=== PATIENT | female | born 1935 | race Two or more races ===

== ENCOUNTER 2016-12-16 06:44 | Emergency (ER) | payer OTHER ==
[2016-12-16 07:25] VITALS: TEMP 97.9; BMI 21.9
--- NOTE | 2016-12-16 07:33 | PDOC ---
History of Present Illness <Oral Barillas - Last Filed: 12/16/16 08:39> - General History Source: Patient, Family Exam Limitations: No Limitations - History of Present Illness Initial Comments: 12/16/16 08:28 The patient is an 81 year old female, accompanied by granddaughter, with a past medical history of UTIs, acid reflux, anxiety, depression, and vertigo, who presents to the emergency department for further evaluation of dysuria and abdominal pain for 2 weeks. As per granddaughter the patient has had associated blood in urine and notes symptoms are similar to her previous UTI episodes. The patient describes her abdominal pain as burning in sensation. Granddaughter states that the patient has a son who is a doctor in the [place] and he prescribed her a course of Fosfomycin (taken BID) which the patient finished yesterday. <Kam Carver - Last Filed: 12/16/16 11:19> - General Chief Complaint: Hematuria Stated Complaint: URINARY PROBLEM,PAIN Time Seen by Provider: 12/16/16 07:21 Past History - Past Medical History GI Disorders: Yes (acid reflux) Psychiatric Problems: Yes (anxiety,depression) - Immunization History Immunization Up to Date: Yes - Psycho/Social/Smoking Cessation Hx Anxiety: No Suicidal Ideation: No Smoking Status: No Smoking History: Never smoked Number of Cigarettes Smoked Daily: 0 Hx Alcohol Use: No Drug/Substance Use Hx: No Substance Use Type: None <Oral Barillas - Last Filed: 12/16/16 08:39> <Kam Carver - Last Filed: 12/16/16 11:19> - Past Medical History Allergies/Adverse Reactions: Allergies Allergy/AdvReac Type Severity Reaction Status Date / Time No Known Drug Allergies Allergy Verified 12/16/16 07:46 eggs AdvReac Uncoded 12/16/16 07:46 Home Medications: Ambulatory Orders Benzonatate [Tessalon Pearls -] 100 mg PO TID PRN #21 capsule 07/05/16 Guaifenesin [Mucinex -] 600 mg PO BID #14 tablet.er 07/05/16 Lorazepam 2.5 mg PO DAILY 07/05/16 Meclizine HCl 25 mg PO DAILY 07/05/16 Nitrofurantoin Macrocrystal [Nitrofurantoin] 100 mg PO BID #9 capsule 12/16/16 Phenazopyridine HCl [Pyridium] 100 mg PO BID #3 tablet 12/16/16 Review of Systems - Review of Systems Able to Perform ROS?: Yes Comments:: 12/16/16 08:28 CONSTITUTIONAL: No reported: Fever, Chills, Diaphoresis, Generalized Weakness, Malaise, Loss of Appetite HEENT: No reported: Rhinorrhea, Nasal Congestion, Throat Pain, Throat Swelling, Difficulty Swallowing, Mouth Swelling, Ear Pain, Eye Pain, Visual Changes CARDIOVASCULAR: No reported: Chest Pain, Syncope, Palpitations, Irregular Heart Rate, Lightheadedness, Peripheral Edema RESPIRATORY: No reported: Cough, Shortness of Breath, SOB with Exertion, Orthopnea, Wheezing , Stridor, Hemoptysis GASTROINTESTINAL: Reported: Abdominal pain No reported: Abdominal pain, Abdominal Distension, Nausea, Vomiting, Diarrhea, Constipation, Melena, Hematochezia GENITOURINARY: Reported: Dysuria. No reported: Frequency, Urgency, Hesitancy, Flank Pain, Genital Pain MUSCULOSKELETAL: No reported: Myalgia, Arthralgia, Joint Swelling, Back pain, Neck Pain SKIN: No reported: Rash, Itching, Pallor HEMATOLOGIC/IMMUNOLOGIC: No reported: Easy Bleeding, Easy Bruising, Lymphadenopathy, Frequent infections ENDOCRINE: No reported: Unexplained Weight Gain, Unexplained Weight Loss, Heat Intolerance , Cold Intolerance NEUROLOGIC: No reported: Headache, Focal Weakness, Paresthesias, Vertigo, Lightheadedness, Unsteady Gait, Seizure, Mental Status Changes, Incontinence PSYCHIATRIC: No reported: Anxiety, Depression <Kam Carver - Last Filed: 12/16/16 11:19> *Physical Exam - Vital Signs Last Vital Signs Temp Pulse Resp BP Pulse Ox 97.9 F 72 18 114/68 98 12/16/16 07:15 12/16/16 07:15 12/16/16 07:15 12/16/16 07:15 12/16/16 07:15 <Oral Barillas - Last Filed: 12/16/16 08:39> - Vital Signs Last Vital Signs Temp Pulse Resp BP Pulse Ox 97.9 F 72 18 114/68 98 12/16/16 07:15 12/16/16 07:15 12/16/16 07:15 12/16/16 07:15 12/16/16 07:15 - Physical Exam Comments: 12/16/16 08:28 GENERAL: The patient is awake, alert, and fully oriented, Nontoxic - in no acute distress. HEAD: Normocephalic, atraumatic. EYES: extraocular movements intact, sclera anicteric, conjunctiva clear. ENT: Normal voice, Moist mucous membranes. NECK: Normal range of motion, No JVD LUNGS: Breath sounds equal, clear to auscultation bilaterally. No wheezes, no rhonchi, no rales. HEART: Regular rate and rhythm, normal S1 and S2 without murmur, rub or gallop. ABDOMEN: (+) Mild surapubic tenderness. soft, normoactive bowel sounds. No guarding, no rebound. No masses. No CVA tenderness EXTREMITIES: Normal range of motion, no edema. No clubbing or cyanosis. No cords , erythema, or tenderness. NEUROLOGICAL: No facial asymmetry, Normal speech, normal gait. PSYCH: Normal mood, normal affect. SKIN: Warm, Dry, normal turgor. <Kam Carver - Last Filed: 12/16/16 11:19> Medical Decision Making - Medical Decision Making 12/16/16 07:46 81y F hx of anxiety presents with suprapubic pain and dysuria for several weeks , had taken a course of fosfomycin with improvement but symptoms returned. no systemic complciants in cluding fever/chills, n/v, bcak pain. suspect UTI will ck ua and urine culture 12/16/16 08:36 UA c/w UTI will treat pt with macrobid and pyridum will hvae pt fu with PMD return precautions were discussed I discussed the physical exam findings, ancillary test results and final diagnoses with the patient. I answered all of the patient's questions. The patient was satisfied with the care received and felt comfortable with the discharge plan and treatment plan. The patient will call their primary care physician within 24 hours to arrange follow-up and will return to the Emergency Department with any new, persistent or worsening symptoms. <Oral Barillas - Last Filed: 12/16/16 08:39> *DC/Admit/Observation/Transfer - Discharge Dispostion Admit: No <Oral Barillas - Last Filed: 12/16/16 08:39> - Attestations Scribe Attestion: 12/16/16 08:29 Documentation prepared by Kam Carver, acting as medical typist for Oral Barillas MD. <Kam Carver - Last Filed: 12/16/16 11:19> Diagnosis at time of Disposition: Urinary tract bacterial infections - Discharge Dispostion Disposition: HOME Condition at time of disposition: Improved - Prescriptions Prescriptions: Nitrofurantoin Macrocrystal [Nitrofurantoin] 100 mg PO BID #9 capsule Phenazopyridine HCl [Pyridium] 100 mg PO BID #3 tablet - Referrals Referrals: [facility] [Provider Group] - Patient Instructions Printed Discharge Instructions: DI for Urinary Tract Infection (UTI) Additional Instructions: Vuelva al departamento de emergencia inmediatamente con CUALQUIER nuevo, persistente o empeorando sntomas incluyendo fiebres, escalofros, dolor de espalda, nuseas, vmitos o cualquier otra preocupacin. Debe llamar y seguir con jaramillo mdico maana para anu evaluacin ms detallada de krystal sntomas. Los resultados fueron discutidos con usted. Por favor, asegrese de que jaramillo mdico revise los resultados de jaramillo evaluacin de emergencia. Return to the emergency department immediately with ANY new, persistent or worsening symptoms including any fevers, chills, back pain, nausea, vomiting or any other concerns. You MUST call and follow up with your doctor tomorrow for further evaluation of your symptoms. Results were discussed with you. Please make sure your doctor reviews the results of your emergency evaluation. Print Language: BENINESE
[2016-12-16 08:21] LABS: URINE APPEARANCE CLOUDY; URINE BILIRUBIN NEGATIVE (NEGATIVE); URINE COLOR YELLOW; URINE GLUCOSE (UA) NEGATIVE (NEGATIVE); URINE KETONE NEGATIVE (NEGATIVE); URINE NITRITE NEGATIVE (NEGATIVE); URINE UROBILINOGEN NEGATIVE E.U./dl (0.2-1.0)
[2016-12-16 08:28] LABS: URINE BLOOD 2+ (NEGATIVE); URINE LEUK ESTERASE 3+ (NEGATIVE); URINE PROTEIN 2+ (NEGATIVE)
[2016-12-16 08:29] LABS: URINE BACTERIA FEW /hpf (NONE SEEN); URINE RBC 66 /hpf (0-3); URINE WBC 895 /hpf (3-5); YEAST MODERATE
[2016-12-16] MEDS ORDERED: PHENAZOPYRIDINE HCL 100 MG TABLET (FP) PO ONE (08:34)
[2016-12-16] MEDS ORDERED: NITROFURANTOIN MACROCRYSTAL 50 MG CAPSULE (FP) PO SCH (08:45)
[2016-12-16] MEDS ORDERED: NITROFURANTOIN MACROCRYSTAL 50 MG CAPSULE (FP) ONE (08:50)
[2016-12-16] MEDS ORDERED: PHENAZOPYRIDINE HCL 100 MG TABLET (FP) ONE (08:50)
[2016-12-16 09:00] VITALS: BP 120/68; PULSE 70
== END 2016-12-16 09:00 | disposition home or self-care (01) ==
LOC: JER 06:44
DX: N39.0 Urinary tract infection, site not specified (principal); B96.20 Unspecified Escherichia coli [E. coli] as the cause of diseases classified elsewhere; F41.8 Other specified anxiety disorders; K21.9 Gastro-esophageal reflux disease without esophagitis
CPT/HCPCS: 81003; 81015; 87086; 87186; 99282-25

== ENCOUNTER 2020-09-30 14:37 | Emergency (ER) | payer OTHER ==
[2020-09-30 14:44] VITALS: BMI 24.9
[2020-09-30] MEDS ORDERED: KETOROLAC TROMETHAMINE 30 MG/1 ML VIAL IM ONE (15:30)
[2020-09-30] MEDS ORDERED: ACETAMINOPHEN 500 MG TABLET (FP) PO ONE (15:31)
[2020-09-30] MEDS ORDERED: KETOROLAC TROMETHAMINE 30 MG/1 ML VIAL ONE (15:41)
[2020-09-30] MEDS ORDERED: ACETAMINOPHEN 325 MG TABLET (FP) ONE (15:41)
[2020-09-30] MEDS ORDERED: morphine CARPU-JECT 4 MG/1 ML DISP.SYRIN IVPUSH ONE (17:20)
[2020-09-30] MEDS ORDERED: MORPHINE SULFATE 2 MG/ML VIAL ONE (17:44)
[2020-09-30 17:57] LABS: BASO % 0.3 % (0-2.0); EOS % 1.2 % (0-4.5); HEMATOCRIT 35.6 % (32.4-45.2); HEMOGLOBIN 11.8 GM/dL (10.7-15.3); LYMPH % 26.7 % (8-40); MCH 32.2 pg (25.7-33.7); MCHC 33.2 g/dl (32.0-36.0); MEAN PLT VOLUME 9.7 fl (7.5-11.1); NEUT % 66.8 % (42.8-82.8); PLATELET COUNT 188 K/MM3 (134-434); RBC 3.67 M/mm3 (3.60-5.2); RDW 18.4 % (11.6-15.6); WHITE BLOOD COUNT 9.2 K/mm3 (4.0-10.0)
[2020-09-30 18:16] LABS: POTASSIUM 4.8 mmol/L (3.5-5.1)
[2020-09-30 18:17] LABS: ALBUMIN 3.3 g/dl (3.4-5.0); BLOOD UREA NITROGEN 27.8 mg/dL (7-18); CALCIUM 8.8 mg/dL (8.5-10.1)
[2020-09-30 18:20] LABS: CREATININE 0.9 mg/dL (0.55-1.3)
[2020-09-30 18:22] LABS: BILIRUBIN,TOTAL 0.2 mg/dL (0.2-1); TOT PROT 6.3 g/dl (6.4-8.2)
[2020-09-30 18:37] LABS: EPI CELLS 1 /uL (0-25.1); HYALINE CASTS 2 /uL (0-3.1); URINE APPEARANCE CLOUDY; URINE BACTERIA >9,000 /uL (0-1359); URINE BILIRUBIN NEGATIVE (NEGATIVE); URINE COLOR YELLOW; URINE GLUCOSE (UA) NEGATIVE (NEGATIVE); URINE KETONE NEGATIVE (NEGATIVE); URINE LEUK ESTERASE 2+ (NEGATIVE); URINE NITRITE NEGATIVE (NEGATIVE); URINE PROTEIN 2+ (NEGATIVE); URINE RBC 13 /uL (0-23.9); URINE UROBILINOGEN 0.2 mg/dL (0.2-1.0); URINE WBC 164 /uL (0-25.8)
[2020-09-30] MEDS ORDERED: CEPHALEXIN MONOHYDRATE 500 MG CAPSULE (UD) PO ONE (18:49)
[2020-09-30] MEDS ORDERED: SULFAMETHOXAZOLE/TRIMETHOPRIM 800MG/160MG D.S. TABLET PO ONE (18:51)
[2020-09-30] MEDS ORDERED: SULFAMETHOXAZOLE/TRIMETHOPRIM 800MG/160MG D.S. TABLET ONE (18:53)
[2020-09-30 19:17] VITALS: BP 145/79; PULSE 85; TEMP 97.9
== END 2020-09-30 19:17 | disposition home or self-care (01) ==
LOC: JER 14:37
PROC: 3E0233Z Introduction of Anti-inflammatory into Muscle, Percutaneous Approach (ICD-10-PCS; principal; 2020-09-30)
PROC: 3E033NZ Introduction of Analgesics, Hypnotics, Sedatives into Peripheral Vein, Percutaneous Approach (ICD-10-PCS; 2020-09-30)
DX: R10.9 Unspecified abdominal pain (principal); N30.00 Acute cystitis without hematuria
CPT/HCPCS: 36415; 72070-TC-FY; 72100-TC-FY; 74176-TC; 80053; 81003; 85025; 87086; 87186; 96372; 96375; 99285-25

== ENCOUNTER 2021-04-01 09:18 | Inpatient (IN) | payer OTHER ==
[2021-04-01 10:21] LABS: EPI CELLS 7 /uL (0-25.1); HYALINE CASTS 1 /uL (0-3.1); URINE APPEARANCE CLOUDY; URINE BACTERIA >9,000 /uL (0-1359); URINE BILIRUBIN NEGATIVE (NEGATIVE); URINE COLOR YELLOW; URINE GLUCOSE (UA) NEGATIVE (NEGATIVE); URINE KETONE TRACE (NEGATIVE); URINE LEUK ESTERASE 3+ (NEGATIVE); URINE NITRITE POSITIVE (NEGATIVE); URINE PROTEIN TRACE (NEGATIVE); URINE RBC 56 /uL (0-23.9); URINE UROBILINOGEN 0.2 mg/dL (0.2-1.0); URINE WBC 1390 /uL (0-25.8)
[2021-04-01] MEDS ORDERED: ACETAMINOPHEN 1000 MG/100 ML VIAL (NON FORMULARY) IVPB ONE (11:10)
[2021-04-01] MEDS ORDERED: ACETAMINOPHEN INJECTION 100 ML IVPB ONE (11:11)
[2021-04-01 11:14] LABS: BASO % 0.6 % (0-2.0); EOS % 0.9 % (0-4.5); HEMATOCRIT 32.5 % (32.4-45.2); HEMOGLOBIN 11.2 GM/dL (10.7-15.3); LYMPH % 16.5 % (8-40); MCH 33.1 pg (25.7-33.7); MCHC 34.3 g/dl (32.0-36.0); MEAN CELL VOLUME 96.5 fl (80-96); MEAN PLT VOLUME 9.7 fl (7.5-11.1); PLATELET COUNT 114 10^3/uL (134-434); RBC 3.37 M/mm3 (3.60-5.2); RDW 19.1 % (11.6-15.6); WHITE BLOOD COUNT 9.6 K/mm3 (4.0-10.0)
[2021-04-01] MEDS ORDERED: CEFTRIAXONE 1,000 MG in DEXTROSE 5%-WATER - 50 ML IVPB ONE (11:41)
[2021-04-01 11:44] LABS: BLOOD UREA NITROGEN 27.8 mg/dL (7-18); CALCIUM 8.2 mg/dL (8.5-10.1)
[2021-04-01] MEDS ORDERED: CEFTRIAXONE 1 GM/50 ML BAG ONE (11:44)
[2021-04-01 11:48] LABS: BILIRUBIN,TOTAL 0.3 mg/dL (0.2-1)
[2021-04-01 11:49] LABS: TOT PROT 5.8 g/dl (6.4-8.2)
[2021-04-01] MEDS ORDERED: morphine CARPU-JECT 2 MG/1 ML DISP.SYRIN IVPUSH ONE (14:22)
[2021-04-01] MEDS ORDERED: MORPHINE SULFATE 2 MG/ML VIAL ONE (14:27)
[2021-04-01] MEDS ORDERED: LIDOCAINE 5% TOPICAL PATCH TP ONE (15:35)
[2021-04-01] MEDS ORDERED: KETOROLAC TROMETHAMINE 15 MG/ML VIAL IVPUSH ONE (15:37)
[2021-04-01] MEDS ORDERED: KETOROLAC TROMETHAMINE 15 MG/ML VIAL ONE (15:47)
[2021-04-01] MEDS ORDERED: LIDOCAINE 5% TOPICAL PATCH ONE (15:47)
[2021-04-01] MEDS ORDERED: ACETAMINOPHEN 500 MG TABLET (FP) ONE (17:02)
[2021-04-01] MEDS: SODIUM CHLORIDE 1,000 ML IV SCH (17:06)
[2021-04-01] MEDS: ACETAMINOPHEN 500 MG TABLET (FP) PO SCH ×2 (17:07→23:08)
[2021-04-01 21:11] VITALS: BMI 21.4
[2021-04-01] MEDS ORDERED: LIDOCAINE PATCH REMOVAL MC ONE (22:00)
[2021-04-02] MEDS: ACETAMINOPHEN 500 MG TABLET (FP) PO SCH (05:44)
[2021-04-02] MEDS: SODIUM CHLORIDE 1,000 ML IV SCH ×2 (05:45→17:28)
[2021-04-02 08:26] LABS: BLOOD UREA NITROGEN 24.4 mg/dL (7-18)
[2021-04-02 08:29] LABS: CREATININE 0.9 mg/dL (0.55-1.3)
[2021-04-02] MEDS ORDERED: cefTRIAXone SODIUM 1 GM VIAL ONE (08:29)
[2021-04-02] MEDS ORDERED: DEXTROSE 5%-WATER - 50 ML IVPB ONE (08:30)
[2021-04-02 08:34] LABS: BASO % 0.3 % (0-2.0); EOS % 2.9 % (0-4.5); HEMOGLOBIN 12.8 GM/dL (10.7-15.3); LYMPH % 35.9 % (8-40); MCH 32.8 pg (25.7-33.7); MCHC 32.8 g/dl (32.0-36.0); MEAN CELL VOLUME 99.9 fl (80-96); MEAN PLT VOLUME 8.5 fl (7.5-11.1); MONO % 4.6 % (3.8-10.2); NEUT % 56.3 % (42.8-82.8); PLATELET COUNT 178 10^3/uL (134-434); RDW 19.8 % (11.6-15.6); WHITE BLOOD COUNT 6.9 K/mm3 (4.0-10.0)
[2021-04-02] MEDS ORDERED: ACETAMINOPHEN 1000 MG/100 ML VIAL (NON FORMULARY) IVPB ONE (08:45)
[2021-04-02] MEDS: LORazepam 1 MG TABLET PO PRN (09:11)
[2021-04-02] MEDS: LIDOCAINE 5% TOPICAL PATCH TP SCH (09:11)
[2021-04-02] MEDS: CEFTRIAXONE 1 GM in DEXTROSE 5%-WATER - 50 ML IVPB SCH (09:12)
[2021-04-02] MEDS: ACETAMINOPHEN 500 MG TABLET (FP) PO PRN (18:11)
[2021-04-02] MEDS: KETOROLAC TROMETHAMINE 15 MG/ML VIAL IVPUSH PRN (21:12)
[2021-04-02] MEDS: LIDOCAINE PATCH REMOVAL MC SCH (22:14)
[2021-04-03] MEDS: SODIUM CHLORIDE 1,000 ML IV SCH ×2 (04:05→18:40)
[2021-04-03] MEDS: KETOROLAC TROMETHAMINE 15 MG/ML VIAL IVPUSH PRN ×3 (05:50→23:42)
[2021-04-03 07:48] LABS: BASO % 0.3 % (0-2.0); EOS % 3.7 % (0-4.5); HEMATOCRIT 34.4 % (32.4-45.2); HEMOGLOBIN 11.7 GM/dL (10.7-15.3); MCH 32.6 pg (25.7-33.7); MEAN CELL VOLUME 95.8 fl (80-96); MEAN PLT VOLUME 9.1 fl (7.5-11.1); MONO % 5.3 % (3.8-10.2); NEUT % 62.7 % (42.8-82.8); PLATELET COUNT 123 10^3/uL (134-434); RBC 3.59 M/mm3 (3.60-5.2); RDW 19.5 % (11.6-15.6); WHITE BLOOD COUNT 6.2 K/mm3 (4.0-10.0)
[2021-04-03 08:01] LABS: ALBUMIN 3.1 g/dl (3.4-5.0); BLOOD UREA NITROGEN 15.9 mg/dL (7-18); MAGNESIUM 2.2 mg/dL (1.8-2.4)
[2021-04-03 08:05] LABS: CREATININE 0.8 mg/dL (0.55-1.3)
[2021-04-03 08:06] LABS: BILIRUBIN,TOTAL 0.3 mg/dL (0.2-1); TOT PROT 6.1 g/dl (6.4-8.2)
[2021-04-03] MEDS ORDERED: cefTRIAXone SODIUM 1 GM VIAL ONE (10:07)
[2021-04-03] MEDS ORDERED: DEXTROSE 5%-WATER - 50 ML IVPB ONE (10:08)
[2021-04-03] MEDS: LIDOCAINE 5% TOPICAL PATCH TP SCH (10:16)
[2021-04-03] MEDS: CEFTRIAXONE 1 GM in DEXTROSE 5%-WATER - 50 ML IVPB SCH (10:16)
[2021-04-03] MEDS ORDERED: MORPHINE SULFATE 2 MG/ML VIAL IM ONE (12:47)
[2021-04-03] MEDS ORDERED: MORPHINE SULFATE 2 MG/ML VIAL IVPUSH PRN (12:53)
[2021-04-03] MEDS ORDERED: KETOROLAC TROMETHAMINE 15 MG/ML VIAL IVPUSH PRN (12:54)
[2021-04-03] MEDS ORDERED: ACETAMINOPHEN 1000 MG/100 ML VIAL (NON FORMULARY) IVPB ONE (12:54)
[2021-04-03] MEDS ORDERED: MELATONIN 5 MG TABLETS PO PRN (14:37)
[2021-04-03] MEDS: LIDOCAINE PATCH REMOVAL MC SCH (21:52)
[2021-04-04 06:47] LABS: BASO % 0.5 % (0-2.0); EOS % 5.1 % (0-4.5); HEMOGLOBIN 10.9 GM/dL (10.7-15.3); LYMPH % 36.2 % (8-40); MCH 32.4 pg (25.7-33.7); MCHC 34.1 g/dl (32.0-36.0); MEAN CELL VOLUME 95.1 fl (80-96); MEAN PLT VOLUME 9.2 fl (7.5-11.1); MONO % 6.3 % (3.8-10.2); NEUT % 51.9 % (42.8-82.8); PLATELET COUNT 137 10^3/uL (134-434); RBC 3.36 M/mm3 (3.60-5.2); RDW 19.4 % (11.6-15.6); WHITE BLOOD COUNT 6.5 K/mm3 (4.0-10.0)
[2021-04-04 07:04] LABS: ALBUMIN 2.8 g/dl (3.4-5.0); CALCIUM 7.6 mg/dL (8.5-10.1)
[2021-04-04] MEDS: KETOROLAC TROMETHAMINE 15 MG/ML VIAL IVPUSH PRN (07:04)
[2021-04-04 07:08] LABS: CREATININE 0.8 mg/dL (0.55-1.3)
[2021-04-04 07:09] LABS: BILIRUBIN,TOTAL 0.3 mg/dL (0.2-1); TOT PROT 5.3 g/dl (6.4-8.2)
[2021-04-04] MEDS ORDERED: DEXTROSE 5%-WATER - 50 ML IVPB ONE (08:50)
[2021-04-04] MEDS ORDERED: cefTRIAXone SODIUM 1 GM VIAL ONE (08:50)
[2021-04-04] MEDS: LIDOCAINE 5% TOPICAL PATCH TP SCH (09:07)
[2021-04-04] MEDS: CEFTRIAXONE 1 GM in DEXTROSE 5%-WATER - 50 ML IVPB SCH (09:07)
[2021-04-04] MEDS: DOCUSATE SODIUM 100 MG CAPSULE (FP) PO SCH ×2 (14:18→21:15)
[2021-04-04] MEDS: POLYETHYLENE GLYCOL (HEALTHYLAX) 3350 17 GM PACKET PO SCH (14:18)
[2021-04-04] MEDS: ACETAMINOPHEN 500 MG TABLET (FP) PO PRN ×2 (16:04→21:16)
[2021-04-04] MEDS: SODIUM CHLORIDE 1,000 ML IV SCH (17:12)
[2021-04-04] MEDS: LIDOCAINE PATCH REMOVAL MC SCH (21:16)
[2021-04-04] MEDS: LORazepam 1 MG TABLET PO PRN (21:18)
[2021-04-04] MEDS: MORPHINE SULFATE 2 MG/ML VIAL IVPUSH PRN (21:18)
[2021-04-04] MEDS ORDERED: MELATONIN 5 MG TABLETS PO SCH (22:00)
[2021-04-05] MEDS: DOCUSATE SODIUM 100 MG CAPSULE (FP) PO SCH ×2 (05:43→13:02)
[2021-04-05] MEDS: MORPHINE SULFATE 2 MG/ML VIAL IVPUSH PRN (08:37)
[2021-04-05] MEDS ORDERED: cefTRIAXone SODIUM 1 GM VIAL ONE (08:48)
[2021-04-05] MEDS ORDERED: DEXTROSE 5%-WATER - 50 ML IVPB ONE (08:48)
[2021-04-05] MEDS: POLYETHYLENE GLYCOL (HEALTHYLAX) 3350 17 GM PACKET PO SCH (09:00)
[2021-04-05] MEDS: CEFTRIAXONE 1 GM in DEXTROSE 5%-WATER - 50 ML IVPB SCH (09:00)
[2021-04-05] MEDS: LIDOCAINE 5% TOPICAL PATCH TP SCH (09:01)
[2021-04-05] MEDS ORDERED: IBUPROFEN 400 MG TABLET (FP) PO ONE (10:45)
[2021-04-05 12:45] LABS: BASO % 0.4 % (0-2.0); EOS % 3.2 % (0-4.5); HEMOGLOBIN 12.7 GM/dL (10.7-15.3); LYMPH % 31.4 % (8-40); MCH 32.9 pg (25.7-33.7); MCHC 33.5 g/dl (32.0-36.0); MEAN CELL VOLUME 98.2 fl (80-96); MEAN PLT VOLUME 10.6 fl (7.5-11.1); MONO % 4.8 % (3.8-10.2); NEUT % 60.2 % (42.8-82.8); PLATELET COUNT 143 10^3/uL (134-434); RBC 3.86 M/mm3 (3.60-5.2); RDW 19.7 % (11.6-15.6); WHITE BLOOD COUNT 9.9 K/mm3 (4.0-10.0)
[2021-04-05 13:11] VITALS: BP 128/74; PULSE 73; TEMP 98
[2021-04-05 13:11] LABS: ALBUMIN 3.2 g/dl (3.4-5.0); BLOOD UREA NITROGEN 18.8 mg/dL (7-18); CALCIUM 8.6 mg/dL (8.5-10.1); MAGNESIUM 2.4 mg/dL (1.8-2.4)
[2021-04-05 13:14] LABS: BILIRUBIN,TOTAL 0.3 mg/dL (0.2-1); CREATININE 0.8 mg/dL (0.55-1.3); TOT PROT 6.5 g/dl (6.4-8.2)
[2021-04-06] MEDS ORDERED: CEFUROXIME AXETIL 500 MG TABLET PO SCH (10:00)
== END 2021-04-05 17:25 | disposition home or self-care (01) | DRG 690 ==
LOC: JER 09:18 → JERBED 14:43 → J7W 20:20
PROVIDERS: ADMIT Internal Medicine; ATTEND Nurse Practitioner Family
DX: N39.0 Urinary tract infection, site not specified (principal); B96.20 Unspecified Escherichia coli [E. coli] as the cause of diseases classified elsewhere; F41.8 Other specified anxiety disorders; K21.9 Gastro-esophageal reflux disease without esophagitis; M54.9 Dorsalgia, unspecified; R10.9 Unspecified abdominal pain
CPT/HCPCS: 36415; 74176-TC; 76604; 76775-TC; 80048; 80053; 81003; 83735; 85025; 87086; 87186; 97116-GP; 97162-GP; 99285-25; C9803; J0131; U0003; U0005

== ENCOUNTER 2021-08-05 02:11 | Emergency (ER) | payer OTHER ==
[2021-08-05 02:47] VITALS: TEMP 98.4; BMI 24.0
[2021-08-05] MEDS ORDERED: ACETAMINOPHEN 1000 MG/100 ML VIAL IVPB ONE (03:52)
[2021-08-05] MEDS ORDERED: SODIUM CHLORIDE 0.9% 500 ML INFUS.BAG IV ONE (03:52)
[2021-08-05] MEDS ORDERED: ACETAMINOPHEN INJECTION 100 ML IVPB ONE (03:54)
[2021-08-05 04:04] LABS: BASO % 0.3 % (0-2.0); EOS % 1.1 % (0-4.5); HEMATOCRIT 38.2 % (32.4-45.2); HEMOGLOBIN 12.8 GM/dL (10.7-15.3); LYMPH % 13.8 % (8-40); MCH 32.1 pg (25.7-33.7); MCHC 33.5 g/dl (32.0-36.0); MEAN CELL VOLUME 95.7 fl (80-96); MEAN PLT VOLUME 9.4 fl (7.5-11.1); MONO % 4.8 % (3.8-10.2); PLATELET COUNT 123 10^3/uL (134-434); RBC 3.99 M/mm3 (3.60-5.2); RDW 19.7 % (11.6-15.6); WHITE BLOOD COUNT 8.9 K/mm3 (4.0-10.0)
[2021-08-05 04:08] LABS: EPI CELLS 1 /uL (0-25.1); HYALINE CASTS 1 /uL (0-3.1); URINE APPEARANCE CLEAR; URINE BACTERIA >9,000 /uL (0-1359); URINE BILIRUBIN NEGATIVE (NEGATIVE); URINE COLOR YELLOW; URINE GLUCOSE (UA) NEGATIVE (NEGATIVE); URINE KETONE NEGATIVE (NEGATIVE); URINE LEUK ESTERASE TRACE (NEGATIVE); URINE NITRITE POSITIVE (NEGATIVE); URINE PROTEIN 2+ (NEGATIVE); URINE RBC 223 /uL (0-23.9); URINE UROBILINOGEN 0.2 mg/dL (0.2-1.0); URINE WBC 329 /uL (0-25.8)
[2021-08-05] MEDS ORDERED: CEFTRIAXONE 1 GM in DEXTROSE 5%-WATER - 50 ML IVPB ONE (04:20)
[2021-08-05 04:23] LABS: CHLORIDE 106 mmol/L (98-107); SODIUM 139 mmol/L (136-145)
[2021-08-05 04:25] LABS: ALBUMIN 3.4 g/dl (3.4-5.0); ANION GAP 3 MMOL/L (8-16); BLOOD UREA NITROGEN 17.4 mg/dL (7-18); CALCIUM 8.4 mg/dL (8.5-10.1); CO2 29 mmol/L (21-32); GLUCOSE,RANDOM 92 mg/dL (74-106); MAGNESIUM 2.1 mg/dL (1.8-2.4)
[2021-08-05 04:28] LABS: CREATININE 0.9 mg/dL (0.55-1.3); SGOT/AST 24 U/L (15-37); SGPT/ALT 24 U/L (13-61)
[2021-08-05 04:30] LABS: BILIRUBIN,TOTAL 0.3 mg/dL (0.2-1); TOT PROT 7.1 g/dl (6.4-8.2)
[2021-08-05 04:31] LABS: ALK PHOS 83 U/L (45-117)
[2021-08-05] MEDS ORDERED: CEFTRIAXONE 1 GM/50 ML BAG ONE (04:35)
[2021-08-05 05:14] VITALS: BP 118/78; PULSE 80
== END 2021-08-05 05:13 | disposition home or self-care (01) ==
LOC: JER 02:11
PROC: 3E033GC Introduction of Other Therapeutic Substance into Peripheral Vein, Percutaneous Approach (ICD-10-PCS; principal; 2021-08-05)
DX: N39.0 Urinary tract infection, site not specified (principal)
CPT/HCPCS: 36415; 71045-TC-FY; 80053; 81003; 82550; 83605; 83735; 84484; 85025; 87040; 87086; 87186; 87804; 87807; 93005; 93010; 96374; 96375; 99285-25; C9803; J0131; U0003; U0005